=== PATIENT | female | born 1935 | race Caucasian/White ===

== ENCOUNTER 2019-03-10 15:50 | Emergency (ER) | payer MEDICARE, OTHER ==
[~2019-03-10] VITALS: Ht 167.6 cm; Wt 67.3 kg
[2019-03-10 16:08] VITALS: Ht 167.6 cm; Wt 67.3 kg
[2019-03-10] MEDS ORDERED: GLUCOTROL 5 MG T5 MG PO (16:10)
[2019-03-10] MEDS ORDERED: GLIPIZIDE10 MG PO (16:10)
[2019-03-10] MEDS ORDERED: NORVASC5 MG PO (16:11)
[2019-03-10] MEDS ORDERED: ZOCOR10 MG PO (16:12)
[2019-03-10] MEDS ORDERED: BAYER CHEWABLE81 MG PO (16:12)
[2019-03-10] MEDS ORDERED: NEXIUM40 MG PO (16:13)
[2019-03-10] MEDS ORDERED: JANUVIA25 MG PO (16:17)
[2019-03-10] MEDS ORDERED: ATIVAN0.5 MG PO (16:17)
[2019-03-10] MEDS ORDERED: GABAPENTIN100 MG PO (16:18)
[2019-03-10 16:55] LABS: BASOPHILS 0 % (0-2); EOSINOPHILS 2.3 % (0-7); HEMOGLOBIN 12.2 g/dL (12-16); IMMATURE GRANULOCYTES 0.5 % (0-5); MCH 29.1 pg (26.0-34.0); MCV 88.3 fL (80.0-100.0); MEAN PLATELET VOLUME 10.2 fL (7.4-10.4); MONOCYTES 11.3 % (2-11); NEUTROPHILS 55.9 % (40-80); PLATELET COUNT 213 10x3/uL (130-400); RBC 4.19 10x6/uL (4.00-5.40); WBC 7.5 10x3/uL (4.8-10.8)
[2019-03-10 17:09] LABS: APTT 25.6 SECONDS (22.8-39.4); PROTIME 12.7 SECONDS (11.6-15.0)
[2019-03-10 17:17] LABS: ALBUMIN 3.7 g/dL (3.4-5.0); ALKALINE PHOSPHATASE 85 U/L (46-116); ALT (SGPT) 26 U/L (10-68); BILIRUBIN - TOTAL 0.29 mg/dL (0.2-1.3); CALC OSMOLALITY 275 mosm/kg (275-300); CARBON DIOXIDE 27.7 mmol/L (21.0-32.0); CHLORIDE - SERUM 104 mmol/L (98-107); GLUCOSE 101 mg/dL (74-106); POTASSIUM - SERUM 4.2 mmol/L (3.5-5.1); SODIUM 137 mmol/L (136-145); UREA NITROGEN 19 mg/dL (7-18); eGFR NON AFRICAN AMERICAN 56 mL/min (90-120)
[2019-03-10 17:27] LABS: CKMB 1.2 U/L (0.0-3.6); CREATINE KINASE 74 UL (21-215); MAGNESIUM - SERUM 2.2 mg/dL (1.8-2.4)
[2019-03-10 17:40] LABS: TROPONIN-I < 0.017 ng/mL (0.000-0.060)
[2019-03-10 21:38] LABS: APPEARANCE CLEAR (CLEAR); BILIRUBIN NEGATIVE (NEGATIVE); COLOR YELLOW (YELLOW); GLUCOSE NEGATIVE (NEGATIVE); KETONE NEGATIVE (NEGATIVE); NITRITE NEGATIVE (NEGATIVE); PROTEIN NEGATIVE (NEGATIVE); UROBILINOGEN NORMAL (NORMAL)
[2019-03-10 22:10] VITALS: BP 138/74
== END 2019-03-10 22:10 | disposition home or self-care (01) ==
LOC: D.ER 15:50
PROVIDERS: Emergency Medicine
DX: I95.9 Hypotension, unspecified (principal)

== ENCOUNTER → 2019-08-10 08:15 | Outpatient (CLI) | payer MEDICARE, OTHER ==
[2019-03-10 16:08] VITALS: BMI 23.9
[~2019-08-10 08:15] MED LIST: ATIVAN0.5 MG PO; BAYER CHEWABLE81 MG PO; GABAPENTIN100 MG PO; GLIPIZIDE10 MG PO; GLUCOTROL 5 MG T5 MG PO; JANUVIA25 MG PO; NEXIUM40 MG PO; NORVASC5 MG PO; ZOCOR10 MG PO
== END | disposition home or self-care (01) ==
LOC: D.RAD 08:15
PROVIDERS: ATTEND Internal Medicine Gastroenterology
DX: Z86.010 Personal history of colon polyps (principal); K59.09 Other constipation; Z85.038 Personal history of other malignant neoplasm of large intestine